=== PATIENT | female | born 1985 | race Caucasian/White ===

== ENCOUNTER → 2016-07-20 | Outpatient (REF) | payer OTHER | LOC: M LAB REF 17:09 | PROVIDERS: ATTEND Advanced Practice Midwife | DX: Z34.83 Encounter for supervision of other normal pregnancy, third trimester (principal) ==

== ENCOUNTER 2016-08-19 02:38 | Inpatient (IN) | payer OTHER ==
[~2016-08-19] VITALS: Ht 165.1 cm; Wt 70.0 kg
[2016-08-19] VITALS (52 sets, daily range): BP systolic 80–131; BP diastolic 48–81
[2016-08-19] MEDS ORDERED: LR 1,000 ML IV SCH ×2 (03:24→15:48)
[2016-08-19] MEDS ORDERED: LACTATED RINGER'S 1000 ML IV STA (03:24)
[2016-08-19] MEDS ORDERED: PROMETHAZINE INJ 25 MG/ML VIAL (J2550) IV ONE (03:30)
[2016-08-19] MEDS ORDERED: BUTORPHANOL 2 MG/ML INJ (J0595) IV ONE (03:30)
[2016-08-19] MEDS ORDERED: OXYTOCIN DRIP 30 UNITS in APPROPRIATE DILUENT 1 EA IV SCH ×2 (03:30→15:48)
[2016-08-19 05:19] LABS: MEAN CORPUSCULAR HEMOGLOBIN 31.7 pg (27.0-33.0); MEAN CORPUSCULAR HGB CONC 34.9 g/dl (32.0-36.5); RED CELL DISTRIBUTION WIDTH 13.1 % (11.5-14.5); WHITE BLOOD COUNT 14.5 K/mm3 (4.0-10.0)
[2016-08-19] MEDS ORDERED: FENTANYL 2MCG/ML ROPIVACAINE 0.2% NACL 250 ML CADD As Ordered ONE (08:53)
[2016-08-19] MEDS ORDERED: LACTATED RINGER'S 1000 ML IV PRN (10:00)
[2016-08-19] MEDS ORDERED: FENTANYL/ROPIVACAINE/NACL CADD 250 ML EPIDURAL SCH (10:00)
[2016-08-19] MEDS ORDERED: EPIDURAL COMMENT XX SCH (10:00)
[2016-08-19] MEDS ORDERED: EPIDURAL/PCA KEYS XX PRN (10:00)
[2016-08-19] MEDS ORDERED: REFRIGERATOR IV KEYS XX PRN (10:00)
[2016-08-19] MEDS ORDERED: ePHEDrine SULFATE 25 MG/5 ML(5MG/ML) SYRINGE IV PRN (10:00)
[2016-08-19] MEDS ORDERED: NALOXONE INJ 0.4 MG/1 ML VIAL (J2310) IV PRN (10:00)
[2016-08-19] MEDS ORDERED: diphenhydrAMINE INJ 50MG/ML VIAL (J1200) IV PRN (10:00)
[2016-08-19] MEDS ORDERED: ONDANSETRON 4MG/2ML VIAL (J2405) IV PRN ×2 (10:00→16:00)
[2016-08-19] MEDS ORDERED: miSOPROStol 25 MCG 1/4 TAB (S0191) PV ONE (13:45)
[2016-08-19] MEDS ORDERED: DOCUSATE SODIUM 100 MG CAP PO PRN (16:00)
[2016-08-19] MEDS ORDERED: PROMETHAZINE 25 MG TAB PO PRN (16:00)
[2016-08-19] MEDS ORDERED: RHOGAM 300 MCG (1500 IU) INJ (J2790) IM SCH (16:00)
[2016-08-19] MEDS ORDERED: IBUPROFEN 800 MG TAB PO PRN (16:00)
[2016-08-19] MEDS ORDERED: DIBUCAINE 1% OINTMENT 30GM TOP PRN (16:00)
[2016-08-19] MEDS ORDERED: ACETAMINOPHEN 500 MG TAB PO PRN (16:00)
[2016-08-19] MEDS ORDERED: MEASLES,MUMPS,RUBELLA VACCINE INJ (MMR-II) (90707) SC SCH (16:00)
[2016-08-20 05:48] VITALS: BP 100/52
[2016-08-20] MEDS: PRENATAL VITAMIN TAB PO SCH (08:10)
[2016-08-20 18:16] VITALS: BP 127/63
[2016-08-21 06:02] VITALS: BP 107/55
[2016-08-21] MEDS: PRENATAL VITAMIN TAB PO SCH (07:56)
[2016-08-21] MEDS ORDERED: ACET50TA PO (08:14)
[2016-08-21] MEDS ORDERED: IBUP-1114 PO (08:14)
[2016-08-21] MEDS ORDERED: PRENTAB9 PO (08:14)
== END 2016-08-21 13:42 | disposition home or self-care (01) | DRG 560 ==
LOC: M LDO 02:38 → M LDI 03:25 → M OBS 18:22
PROVIDERS: ADMIT Obstetrics & Gynecology; ATTEND Obstetrics & Gynecology
PROC: 10E0XZZ Delivery of Products of Conception, External Approach (ICD-10-PCS; principal; 2016-08-19)
PROC: 0HQ9XZZ Repair Perineum Skin, External Approach (ICD-10-PCS; 2016-08-19)
DX: O48.0 Post-term pregnancy (principal); Z3A.40 40 weeks gestation of pregnancy; J45.20 Mild intermittent asthma, uncomplicated; O99.52 Diseases of the respiratory system complicating childbirth; O99.334 Smoking (tobacco) complicating childbirth; F17.210 Nicotine dependence, cigarettes, uncomplicated; O69.81X0 Labor and delivery complicated by cord around neck, without compression, not applicable or unspecified; O70.0 First degree perineal laceration during delivery; Z37.0 Single live birth

== ENCOUNTER → 2016-12-18 | Outpatient (CLI) | payer OTHER ==
[~2016-12-18] MED LIST: ACET50TA PO; IBUP-1114 PO; PRENTAB9 PO
--- NOTE | 2016-12-18 09:34 | REP ---
Clinical: Pain to distal fourth toe. Technique: AP, lateral, bilateral oblique views. Findings: Osseous structures, joint spaces, and surrounding soft tissues appear normal. No acute fracture dislocation. No subcutaneous emphysema or radiodense foreign body. Impression: Normal examination. No acute fracture or dislocation. No obvious pathology. Signed by Danny Clements MD 12/18/2016 09:26 A
== END ==
LOC: M WUC 08:56
PROVIDERS: ATTEND Physician Assistant
DX: M79.674 Pain in right toe(s) (principal)